=== PATIENT | female | born 1965 | race Caucasian/White ===

== ENCOUNTER 2018-11-01 18:40 | Emergency (ER) | payer MEDICARE ==
[2018-11-01] MEDS ORDERED: HYDROCODONE/ACETAMINOPHEN 5-325 MG TABLET PO ONE (20:16)
--- NOTE | 2018-11-01 20:19 | ER Document Report ---
Addendum entered and electronically signed by FABIENNE CARLOS PA-C 11/01/18 20:24: ED Medical Screen (RME) - General Chief Complaint: Foot Pain Stated Complaint: FOOT PAIN Time Seen by Provider: 11/01/18 20:14 Notes: ADDENDUM: PATIENT'S SWELLING IS RIGHT FOOT TRAVEL OUTSIDE OF THE [place] IN LAST 30 DAYS: No - Related Data Allergies/Adverse Reactions: No Known Allergies Allergy (Verified 11/01/18 18:40) Original Note: ED Medical Screen (RME) - General Chief Complaint: Foot Pain Stated Complaint: FOOT PAIN Time Seen by Provider: 11/01/18 20:14 Notes: 53 female with hypertension, [id number] diabetes mellitus, hyperlipidemia, bipolar disorder presents the emergency department with chief complaint of swollen and painful left foot. She moved to the area month ago and was moving boxes when she inadvertently kicked a box. She said over the last 1 week the pain and swelling is gotten progressively worse to the point now where her left big toe is significantly red, warm to the touch, and swollen. She was concerned when the swelling and redness started extending up her foot to her ankle. She denies any fevers or chills, denies nausea or vomiting, denies any sensory deficits in her foot. Patient is able to wiggle her toes and plantar and dorsiflex. Patient does have a palpable dorsalis pedis pulse. Cap refill brisk. Denies any acute shortness of breath or chest pain. Denies history of gout. EXAM: Overall well-appearing and nontoxic. Left foot with significant edema at the MTP and the big toe with swelling of the remaining toes that extends up to the ankle, warm to touch. TRAVEL OUTSIDE OF THE [place] IN LAST 30 DAYS: No - Related Data Allergies/Adverse Reactions: No Known Allergies Allergy (Verified 11/01/18 18:40) Physical Exam - Vital signs Vitals: Temp Pulse Resp BP Pulse Ox 98 F 96 19 155/80 H 95 11/01/18 18:49 11/01/18 18:49 11/01/18 18:49 11/01/18 18:49 11/01/18 18:49 Course - Vital Signs Vital signs: Temp Pulse Resp BP Pulse Ox 98 F 96 19 155/80 H 95 11/01/18 18:49 11/01/18 18:49 11/01/18 18:49 11/01/18 18:49 11/01/18 18:49
[2018-11-01 20:50] LABS: ABSOLUTE BASOPHILS # (AUTO) 0.1 10^3/uL (0.0-0.2); ABSOLUTE EOSINOPHILS # (AUTO) 0.2 10^3/uL (0.0-0.6); ABSOLUTE LYMPHOCYTES (AUTO) 3.2 10^3/uL (0.5-4.7); ABSOLUTE MONOCYTES (AUTO) 0.7 10^3/uL (0.1-1.4); ABSOLUTE NEUT (AUTO) 9.2 10^3/uL (1.7-8.2); BASOPHILS % (AUTO) 0.6 % (0-2); EOSINOPHILS % (AUTO) 1.3 % (0-6); HEMATOCRIT 46.8 % (36.0-47.0); HEMOGLOBIN 15.7 g/dL (12.0-15.5); LYMPHOCYTES % (AUTO) 23.9 % (13-45); MEAN CORPUSCULAR HEMOGLOBIN 31.5 pg (27.0-33.4); MEAN CORPUSCULAR HGB CONC 33.5 g/dL (32.0-36.0); MEAN CORPUSCULAR VOLUME 94 fl (80-97); MONOCYTES % (AUTO) 5.4 % (3-13); PLATELET COUNT 258 10^3/uL (150-450); RED BLOOD COUNT 4.98 10^6/uL (3.72-5.28); RED CELL DISTRIBUTION WIDTH 12.4 % (11.5-14.0); SEGMENTED NEUTROPHILS % (AUTO) 68.8 % (42-78); TOTAL CELLS COUNTED % (AUTO) 100 %; WHITE BLOOD COUNT 13.4 10^3/uL (4.0-10.5)
[2018-11-01 20:53] LABS: APPEARANCE,URINE SLIGHTLY-CLOUDY; BILIRUBIN,URINE NEGATIVE (NEGATIVE); COLOR,URINE YELLOW; GLUCOSE, URINE >=500 mg/dL (NEGATIVE); KETONES,URINE NEGATIVE (NEGATIVE); LEUKOCYTE ESTERASE,URINE NEGATIVE (NEGATIVE); NITRITE,URINE NEGATIVE (NEGATIVE); PROTEIN,URINE NEGATIVE (NEGATIVE); URINE SPECIFIC GRAVITY 1.033; UROBILINOGEN,URINE NEGATIVE mg/dL (<2.0)
[2018-11-01 21:14] LABS: ALANINE AMINOTRANSFERASE 27 U/L (9-52); ALBUMIN 4.4 g/dL (3.5-5.0); ALKALINE PHOSPHATASE 134 U/L (38-126); ANION GAP 7 (5-19); ASPARTATE AMINO TRANSFERASE 22 U/L (14-36); BILIRUBIN,DIRECT 0.4 mg/dL (0.0-0.4); BILIRUBIN,TOTAL 0.6 mg/dL (0.2-1.3); BLOOD UREA NITROGEN 15 mg/dL (7-20); CALCIUM 9.7 mg/dL (8.4-10.2); CARBON DIOXIDE 25 mmol/L (22-30); CHLORIDE 106 mmol/L (98-107); GLUCOSE 118 mg/dL (75-110); POTASSIUM 4.3 mmol/L (3.6-5.0); SODIUM 138.3 mmol/L (137-145); TOTAL PROTEIN 7.5 g/dL (6.3-8.2)
--- NOTE | 2018-11-01 21:35 | RADIOLOGY REPORT (SQ) ---
EXAM DESCRIPTION: Right foot RadLex: XR FOOT 3 OR MORE VIEWS Views: 3 CLINICAL HISTORY: 53 years Female, trauma and swelling COMPARISON: None. FINDINGS: There is a fracture of the distal head of the 1st proximal phalanx, with disruption of the central portion of the articular surface. Fracture plane transversely through the distal head is dorsally displaced several millimeters, best seen on lateral view. No additional fractures. Small plantar calcaneal spur is noted. No hyperdense foreign bodies IMPRESSION: 1. Acute fracture of the distal head of the 1st proximal phalanx, with intra-articular extension
--- NOTE | 2018-11-01 22:30 | ER Document Report ---
ED General - General Chief Complaint: Foot Pain Stated Complaint: FOOT PAIN Time Seen by Provider: 11/01/18 20:14 Primary Care Provider: SINAN FLORES NP [Primary Care Provider] - Follow up as needed TRAVEL OUTSIDE OF THE [place] IN LAST 30 DAYS: No - HPI Notes: Patient is a 53-year-old female who presents emergency department for evaluation of pain and swelling in her right toe. She states that about 3 weeks ago she was moving. She dropped a box and ended up kicking it with her right great toe. She stated she thought she may have fractured her toe, but states she has been told that toe fractures do not require any treatment. She states that it has been swelling, worse over the last week, throughout the day. It also has associated erythema. She states that in the morning when she wakes the erythema and the swelling have entirely resolved. She continues to have pain now, and it is radiating up in her calf, so she thought she should be evaluated. She denies any fevers or chills. No nausea or vomiting. She is eating and drinking normally. She states her blood sugars have been well controlled. - Related Data Allergies/Adverse Reactions: No Known Allergies Allergy (Verified 11/01/18 18:40) Home Medications: Lyrica, lithium, lisinopril, rosuvastatin, ranitidine, Trulicity, Jardiance, glipizide, tizanidine, Effexor Past Medical History - General Information source: Patient - Social History Smoking Status: Never Smoker Family History: Reviewed & Not Pertinent Patient has suicidal ideation: No Patient has homicidal ideation: No - Past Medical History Cardiac Medical History: Reports: Hx Hypercholesterolemia, Hx Hypertension Endocrine Medical History: Reports: Hx Diabetes Mellitus Type 2 - With neuropathy Renal/ Medical History: Denies: Hx Peritoneal Dialysis GI Medical History: Reports: Hx Gastroesophageal Reflux Disease Musculoskeletal Medical History: Reports Other - Chronic back pain Psychiatric Medical History: Reports: Hx Bipolar Disorder, Hx Depression Review of Systems - Review of Systems Constitutional: No symptoms reported EENT: No symptoms reported Cardiovascular: No symptoms reported Respiratory: No symptoms reported Gastrointestinal: No symptoms reported Genitourinary: No symptoms reported Musculoskeletal: See HPI Skin: See HPI Neurological/Psychological: No symptoms reported Physical Exam - Vital signs Vitals: Temp Pulse Resp BP Pulse Ox 98 F 96 19 155/80 H 95 11/01/18 18:49 11/01/18 18:49 11/01/18 18:49 11/01/18 18:49 11/01/18 18:49 - Notes Notes: Vital signs reviewed, please refer to chart. Head is normocephalic, atraumatic. Pupils equal round, reactive to light. Neck is supple without meningismus. Heart is regular rate and rhythm. Lungs are clear to auscultation bilaterally. Abdomen is soft, nontender, normoactive bowel sounds throughout. Extremities without cyanosis, clubbing. Posterior calves are nontender. Patient does have 1+ pitting edema to the midshin. She is a moderate amount of edema over the great toe with associated erythema. Cap refill is brisk, good sensation. She has tenderness to palpation over the metatarsophalangeal joint of the great toe. Passive and active range of motion elicit pain. Dorsalis pedis pulse is 3+. She does have some onychomycosis and calluses of the toes, but no skin breaks noted. Course - Re-evaluation Re-evalutation: 11/01/18 22:28 Patient presents emergency department for evaluation. She is increased pain after an injury of the great toe. X-ray does reveal an intra-articular distal metatarsal fracture. She is placed in a postop shoe. Despite her erythema and edema, as well as a mild leukocytosis, she is not showing any other clinical signs of infection. She said no fevers or chills. No nausea or vomiting. She does not have any clear skin breaks. She states that all of the erythema and edema resolved in the mornings. At this point I will go ahead and treat her simply as a fracture. She is placed in a postop shoe. I will give her a prescription for Mobic as well as some pain medication. The patient had been under pain management before moving here. She is awaiting referral to pain management, asked to see them next week. 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 11/01/18 23:01 Patient already has a postop boot at home. She states is not helping. Because of this, decision was made place the patient in a short posterior splint with crutches. Patient was amenable to this plan. 11/01/18 23:26 Patient had short posterior splint placed without complication. Neurovascularly intact following. - Vital Signs Vital signs: Temp Pulse Resp BP Pulse Ox 98 F 96 19 155/80 H 95 11/01/18 18:49 11/01/18 18:49 11/01/18 18:49 11/01/18 18:49 11/01/18 18:49 - Laboratory Result Diagrams: 11/01/18 20:35 11/01/18 20:35 Laboratory results interpreted by me: 11/01/18 11/01/18 11/01/18 20:20 20:35 20:35 WBC 13.4 H Hgb 15.7 H Absolute Neutrophils 9.2 H Glucose 118 H Alkaline Phosphatase 134 H Urine Glucose (UA) >=500 H - Diagnostic Test Radiology reviewed: Reports reviewed Radiology results interpreted by me: 11/01/18 22:30 Foot X-Ray 11/01/18 20:19 IMPRESSION: 1. Acute fracture of the distal head of the 1st proximal phalanx, with intra-articular extension Discharge - Discharge Clinical Impression: Fracture of first metatarsal bone of right foot Qualifiers: Encounter type: initial encounter Fracture type: closed Fracture alignment: nondisplaced Qualified Code(s): S92.314A - Nondisplaced fracture of first metatarsal bone, right foot, initial encounter for closed fracture Condition: Stable Disposition: HOME, SELF-CARE Instructions: Foot Fracture ([facility]) Additional Instructions: Wear postop boot for any sort of ambulation. Follow-up with your primary care provider for referral onto orthopedics. Take medication as prescribed, preferably with food. If your redness worsens, you develop fevers, increased pain, vomiting, or any other new or concerning symptoms, return immediately to the emergency department for reevaluation. Prescriptions: Oxycodone HCl/Acetaminophen [Percocet 5-325 mg Tablet] 1 tab PO Q6HP PRN #10 tablet PRN Reason: Meloxicam [Mobic] 7.5 mg PO BID #20 tablet Referrals: SINAN FLORES NP [Primary Care Provider] - Follow up as needed
[2018-11-01 23:51] VITALS: BP 138/83
== END 2018-11-01 23:51 | disposition home or self-care (01) ==
LOC: ER 18:40
DX: S92.314A Nondisplaced fracture of first metatarsal bone, right foot, initial encounter for closed fracture (principal); W22.8XXA Striking against or struck by other objects, initial encounter; Y93.E6 Activity, residential relocation; Z79.899 Other long term (current) drug therapy; E11.40 Type 2 diabetes mellitus with diabetic neuropathy, unspecified; Z79.84 Long term (current) use of oral hypoglycemic drugs; F31.9 Bipolar disorder, unspecified; I10 Essential (primary) hypertension; R60.0 Localized edema; D72.829 Elevated white blood cell count, unspecified; B35.1 Tinea unguium; L84 Corns and callosities
CPT/HCPCS: 99283; 36415; 87040; 85025; 80053; 81001; 73630; 29515; A9270

== ENCOUNTER 2018-11-28 17:18 | Emergency (ER) | payer MEDICARE ==
[2018-11-28 17:23] VITALS: BP 162/64
[2018-11-28] MEDS ORDERED: ACETAMINOPHEN 325 MG TABLET PO ONE (17:46)
--- NOTE | 2018-11-28 17:47 | ER Document Report ---
HPI - HPI Patient complains to provider of: wrist injury Time Seen by Provider: 11/28/18 17:41 Onset: Yesterday Onset/Duration: Sudden Quality of pain: Achy Pain Level: 4 Context: Patient states that she slipped on a wet floor falling on outstretched hand yesterday. Patient complains of right wrist pain. Patient denies any other injury. Patient is right-hand dominant. Patient does have pain medication at home and took a dose this morning. Associated Symptoms: Other - r wrist pain Exacerbated by: Movement Relieved by: Denies Similar symptoms previously: No Recently seen / treated by doctor: No - ROS ROS below otherwise negative: Yes Systems Reviewed and Negative: Yes All other systems reviewed and negative - CONSTITUTIONAL Constitutional: DENIES: Fever, Chills - NEURO Neurology: DENIES: Headache, Weakness - GASTROINTESTINAL Gastrointestinal: DENIES: Nausea - MUSCULOSKELETAL Musculoskeletal: REPORTS: Extremity pain - RIGHT UPPER EXT., Swelling - DERM Skin Color: Normal Skin Problems: None Past Medical History - General Information source: Patient - Social History Smoking Status: Current Every Day Smoker Chew tobacco use (# tins/day): No Smoking Education Provided: Yes Frequency of alcohol use: None Drug Abuse: None Occupation: none Family History: Reviewed & Not Pertinent Patient has suicidal ideation: No Patient has homicidal ideation: No - Past Medical History Cardiac Medical History: Reports: Hx Hypercholesterolemia, Hx Hypertension Endocrine Medical History: Reports: Hx Diabetes Mellitus Type 2 - With neuropathy Renal/ Medical History: Denies: Hx Peritoneal Dialysis GI Medical History: Reports: Hx Gastroesophageal Reflux Disease Psychiatric Medical History: Reports: Hx Bipolar Disorder, Hx Depression Past Surgical History: Reports: Hx Hysterectomy, Hx Orthopedic Surgery - CARPEL TUNNEL Vertical Provider Document - CONSTITUTIONAL Agree With Documented VS: Yes Exam Limitations: No Limitations General Appearance: WD/WN, No Apparent Distress - INFECTION CONTROL TRAVEL OUTSIDE OF THE [place] IN LAST 30 DAYS: No - HEENT HEENT: Atraumatic, Normocephalic - NECK Neck: Normal Inspection - RESPIRATORY Respiratory: No Respiratory Distress - CARDIOVASCULAR Pulses: Normal: Radial - MUSCULOSKELETAL/EXTREMETIES Musculoskeletal/Extremeties: MAEW, Tender - Right wrist tenderness over distal radius with 2+ edema, no deformity, Edema. negative: Eccymosis - NEURO Level of Consciousness: Awake, Alert, Appropriate Motor/Sensory: No Motor Deficit - DERM Integumentary: Warm, Dry, No Rash Course - Vital Signs Vital signs: Temp Pulse Resp BP Pulse Ox 98.3 F 51 L 18 162/64 H 98 11/28/18 17:23 11/28/18 17:23 11/28/18 17:23 11/28/18 17:23 11/28/18 17:23 - Diagnostic Test Radiology reviewed: Image reviewed, Reports reviewed Procedures - Immobilization Right Wrist Pre-Proc Neuro Vasc Exam: Normal Immobilizer type: Sugar tong, Sling Performed by: PCT Post-Proc Neuro Vasc Exam: Normal Alignment checked and good: Yes Discharge - Discharge Clinical Impression: Distal radius fracture, right Qualifiers: Encounter type: initial encounter Fracture type: closed Fracture morphology: unspecified fracture morphology Qualified Code(s): S52.501A - Unspecified fracture of the lower end of right radius, initial encounter for closed fracture Condition: Stable Disposition: HOME, SELF-CARE Instructions: Fractured Radius ([facility]), Ice & Elevation ([facility]), Sling to be Used ([facility]), Splint Precautions ([facility]) Additional Instructions: Return immediately for any new or worsening symptoms Followup with your primary care provider, call tomorrow to make a followup appointment Take your pain medication that you have at home as prescribed Follow-up with orthopedics, call Friday for an appointment Forms: Smoking Cessation Education Referrals: SINAN FLORES NP [Primary Care Provider] - Follow up as needed [facility] [Provider Group] - 11/30/18
--- NOTE | 2018-11-28 18:10 | RADIOLOGY REPORT (SQ) ---
EXAM DESCRIPTION: WRIST RIGHT 3 VIEWS COMPLETED DATE/TIME: 11/28/2018 5:55 pm REASON FOR STUDY: foosh COMPARISON: None. NUMBER OF VIEWS: Three views. TECHNIQUE: AP, lateral, and oblique radiographic images acquired of the right wrist. LIMITATIONS: None. FINDINGS: MINERALIZATION: Normal. BONES: Nondisplaced distal radius fracture. SOFT TISSUES: Radial wrist soft tissue swelling. No foreign body. OTHER: No other significant finding. IMPRESSION: Nondisplaced distal radius fracture with associated soft tissue swelling. TECHNICAL DOCUMENTATION: JOB ID: [id number] [employer]- All Rights Reserved Reading location - IP/workstation name: [email or web address]
== END 2018-11-28 18:28 | disposition home or self-care (01) ==
LOC: ER 17:18
DX: S52.501A Unspecified fracture of the lower end of right radius, initial encounter for closed fracture (principal); M25.531 Pain in right wrist; W01.0XXA Fall on same level from slipping, tripping and stumbling without subsequent striking against object, initial encounter; Y92.009 Unspecified place in unspecified non-institutional (private) residence as the place of occurrence of the external cause; F17.200 Nicotine dependence, unspecified, uncomplicated; I10 Essential (primary) hypertension; E11.40 Type 2 diabetes mellitus with diabetic neuropathy, unspecified
CPT/HCPCS: 99283; 73110; 29125; A9270

== ENCOUNTER → 2019-01-02 | Outpatient (CLI) | payer MEDICARE ==
--- NOTE | 2019-01-02 13:28 | RADIOLOGY REPORT (SQ) ---
EXAM DESCRIPTION: MRI RT LOWER EXTREMITY COMBO COMPLETED DATE/TIME: 01/02/2019 9:21 am REASON FOR STUDY: (M79.671)PAIN IN RIGHT FOOT M79.671 PAIN IN RIGHT FOOT COMPARISON: Radiographs from October. TECHNIQUE: Multiplanar imaging of the right forefoot to include T1-weighted, postcontrast T1-weighte d, and T2-weighted images. CONTRAST TYPE AND DOSE: 15 mL Dotarem. RENAL FUNCTION: Not indicated. ACR Type II contrast agent associated with few, if any, unconfounded cases of NSF LIMITATIONS: None. FINDINGS: BONE MARROW: Extensive marrow replacement throughout the distal 2/3 of the proximal phalan x of the great toe. Particularly on T1 weighted sequences, ill definition of what appears to be comm inuted fracture with thickening of regional soft tissues. Mild marrow edema is also noted proximal t o the fracture and there is mild edema in the base of the distal phalanx as well. Extremely difficul t to define discrete fracture lines. Mild signal in the bases of the 3rd, 4th, 5th metatarsals may b e degenerative, incompletely evaluated. SOFT TISSUES: Extensive regional soft tissue thickening and edema without drainable collection. Dania esponding diffuse enhancement both within and external to the bone. OTHER: No other significant finding. IMPRESSION: 1. Patient with known proximal phalanx great toe fracture. MRI shows extensive marrow replacement an d soft tissue edema, more than typically seen for healing fracture at 2 months. No drainable collect ions, however. This raises the possibility of infection and progressive bone resorption. Recommend correlation with current radiographs to assess healing and regional bone integrity. TECHNICAL DOCUMENTATION: JOB ID: [id number] [employer]- All Rights Reserved Reading location - IP/workstation name: [email or web address]
== END ==
LOC: RAD 08:10
PROVIDERS: ATTEND Orthopaedic Surgery
DX: M79.671 Pain in right foot (principal)
CPT/HCPCS: 82565; 73720; A9576

== ENCOUNTER 2019-01-18 12:19 | Day surgery (SDC) | payer MEDICARE ==
[2019-01-18] MEDS ORDERED: FENTANYL CITRATE INJ/PF 100 MCG/2 ML AMPUL ONE (12:45)
[2019-01-18] MEDS ORDERED: MIDAZOLAM 2 MG/2 ML INJ ONE (12:45)
[2019-01-18] MEDS ORDERED: PROPOFOL INJ 200 MG/20 ML VIAL IV ONE (12:45)
--- NOTE | 2019-01-18 13:39 | RADIOLOGY REPORT (SQ) ---
EXAM DESCRIPTION: CHEST SINGLE VIEW COMPLETED DATE/TIME: 01/18/2019 1:24 pm REASON FOR STUDY: PREOP COMPARISON: None. EXAM PARAMETERS: NUMBER OF VIEWS: One view. TECHNIQUE: Single frontal radiographic view of the chest acquired. RADIATION DOSE: NA LIMITATIONS: None. FINDINGS: LUNGS AND PLEURA: No opacities, masses or pneumothorax. No pleural effusion. MEDIASTINUM AND HILAR STRUCTURES: No masses. Contour normal. HEART AND VASCULAR STRUCTURES: Heart normal in size. Normal vasculature. BONES: No acute findings. HARDWARE: None in the chest. OTHER: No other significant finding. IMPRESSION: NO ACUTE RADIOGRAPHIC FINDING IN THE CHEST. TECHNICAL DOCUMENTATION: JOB ID: [id number] [employer]- All Rights Reserved Reading location - IP/workstation name: [email or web address]
[2019-01-18 14:11] LABS: APPEARANCE,URINE SLIGHTLY-CLOUDY; BILIRUBIN,URINE NEGATIVE (NEGATIVE); COLOR,URINE YELLOW; GLUCOSE, URINE >=500 mg/dL (NEGATIVE); KETONES,URINE NEGATIVE (NEGATIVE); LEUKOCYTE ESTERASE,URINE TRACE (NEGATIVE); NITRITE,URINE NEGATIVE (NEGATIVE); PROTEIN,URINE NEGATIVE (NEGATIVE); URINE SPECIFIC GRAVITY 1.029; UROBILINOGEN,URINE NEGATIVE mg/dL (<2.0)
[2019-01-18 14:18] LABS: HEMATOCRIT 47.4 % (36.0-47.0); HEMOGLOBIN 15.9 g/dL (12.0-15.5); MEAN CORPUSCULAR HEMOGLOBIN 31.4 pg (27.0-33.4); MEAN CORPUSCULAR HGB CONC 33.6 g/dL (32.0-36.0); MEAN CORPUSCULAR VOLUME 94 fl (80-97); PLATELET COUNT 228 10^3/uL (150-450); RED BLOOD COUNT 5.07 10^6/uL (3.72-5.28); RED CELL DISTRIBUTION WIDTH 12.5 % (11.5-14.0); WHITE BLOOD COUNT 13.9 10^3/uL (4.0-10.5)
[2019-01-18 14:58] LABS: ANION GAP 10 (5-19); BLOOD UREA NITROGEN 16 mg/dL (7-20); CALCIUM 9.8 mg/dL (8.4-10.2); CARBON DIOXIDE 23 mmol/L (22-30); CHLORIDE 104 mmol/L (98-107); GLUCOSE 104 mg/dL (75-110); POTASSIUM 4.5 mmol/L (3.6-5.0)
[2019-01-18] MEDS ORDERED: BUPIVACAINE HCL 0.5 % INJ/PF 30 ML SDV ONE (15:57)
[2019-01-18] MEDS ORDERED: BUPIVACAINE HCL 0.5%-EPI 1:200000 INJ/PF 30 ML VIAL ONE (15:57)
[2019-01-18] MEDS ORDERED: PROMETHAZINE HCL INJ 25 MG/1 ML VIAL IV PRN ×2 (16:02)
[2019-01-18] MEDS ORDERED: DIPHENHYDRAMINE HCL 50 MG/ML VIAL IV PRN (16:02)
[2019-01-18] MEDS ORDERED: MEPERIDINE HCL/PF INJ 25 MG/1 ML DISP.SYRIN IV PRN (16:02)
[2019-01-18] MEDS ORDERED: FENTANYL CITRATE INJ/PF 100 MCG/2 ML AMPUL IV PRN ×3 (16:02)
[2019-01-18] MEDS ORDERED: MORPHINE SULFATE 10 MG/ML INJ IV PRN (16:02)
--- NOTE | 2019-01-18 16:32 | Discharge Summary ---
Discharge Summary (SDC) - Discharge Final Diagnosis: Right great toe fracture Date of Surgery: 01/18/19 Discharge Date: 01/18/19 Condition: Good Treatment or Instructions: Weightbearing as tolerated in the cam walker, return to the office on Prescriptions: Oxycodone HCl/Acetaminophen [Percocet 5-325 mg Tablet] 1 tab PO Q6 PRN #25 tab PRN Reason: Referrals: YRN CASTILLO PA-C [Primary Care Provider] - Discharge Diet: Regular Respiratory Treatments at Home: Deep Breathing/Coughing Discharge Activity: Balance Activity w/Rest, No tub bath Home Care Assistance: None Needed Report the Following to Your Physician Immediately: Shortness of Breath, Fever over 101 Degrees, Drainage-Foul Smelling
--- NOTE | 2019-01-18 16:35 | Operative Report ---
Operative Report DATE OF SURGERY: 01/18/19 PREOPERATIVE DIAGNOSIS: Right great toe lesion OPERATION: Biopsy, irrigation debridement SURGEON: ARETHA PASCUAL ANESTHESIA: LMAC TISSUE REMOVED OR ALTERED: Tissue to pathology for frozen section, permanent sections. Tissue to microbiology for culture ESTIMATED BLOOD LOSS: Minimal PROCEDURE: With the patient supine on the operative table the right lower extremities prepped and draped sterile fashion. The skin at the base of the great toe is infiltrated with quarter percent Marcaine area and subsequently a dorsal lateral incision was made over the IP joint and extending proximally. This leads to a large cavity at the IP joint and proximally. Tissue was sent for cultures. Tissue sent for frozen section. Tissue sent for permanent cultures. 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 It is packed with iodoform gauze. The skin is reapproximated interrupted nylon. A sterile compressive dressing was applied.
--- NOTE | 2019-01-18 18:15 | EKG REPORT ---
SEVERITY:- NORMAL ECG - SINUS RHYTHM : Confirmed by: Akin Schaeffer MD 18-Jan-2019 18:06:45
[2019-01-18 18:20] VITALS: BP 134/78
== END 2019-01-18 18:05 | disposition home or self-care (01) ==
LOC: OROUT 12:19
PROVIDERS: ATTEND Orthopaedic Surgery
DX: S92.401A Displaced unspecified fracture of right great toe, initial encounter for closed fracture (principal); X58.XXXA Exposure to other specified factors, initial encounter; M79.671 Pain in right foot; E78.5 Hyperlipidemia, unspecified; E11.9 Type 2 diabetes mellitus without complications; I10 Essential (primary) hypertension; F17.210 Nicotine dependence, cigarettes, uncomplicated; Z79.899 Other long term (current) drug therapy; Z79.84 Long term (current) use of oral hypoglycemic drugs
CPT/HCPCS: 36415; 87070; 87205; 82962; 85027; 87075; 87077; 80048; 81001; 88305 ×2; 88331 ×2; 71045; 93005; 93010; 01470; 20240; A6266; J2250; J3490; J3010; J2704; 1470